=== PATIENT | female | born 1940 | race Caucasian/White ===

== ENCOUNTER → 2016-10-21 | Outpatient (CLI) | payer MEDICARE ==
[2015-10-16 08:57] VITALS: BP 186/99
[~2016-10-21] MED LIST: CARV25TA PO; DABI150C PO
--- NOTE | 2016-10-21 09:34 | CARD ---
APPROVED REPORT EXAM: Two-dimensional and M-mode echocardiogram with Doppler and color Doppler. Other Information Quality : Average Rhythm : Atrial Fibrillation INDICATION Atrial Fibrillation 2D DIMENSIONS RVDd2.9 (2.9-3.5cm)Left Atrium(2D)4.6 (1.6-4.0cm) IVSd1.0 (0.7-1.1cm)Aortic Root(2D)3.4 (2.0-3.7cm) LVDd3.8 (3.9-5.9cm)LVOT Diameter2.0 (1.8-2.4cm) PWd1.0 (0.7-1.1cm)LVDs2.7 (2.5-4.0cm) FS (%) 27.2 %SV32.6 ml LVEF(%)53.8 (>50%) Aortic Valve AoV Peak César.92.0cm/sAoV VTI20.4cm AO Peak GR.3.4mmHgLVOT Peak César.73.2cm/s LVOT VTI 15.43cmAO Mean GR.2mmHg KALYN (VMAX)2.83dw2FTK (VTI)2.33cm2 Mitral Valve MV E Sfokures711.7cm/sMV DECEL [id number] MV A Velocity1.3cm/sMV SYJ84hl E/A Xvdfe992.5MVA (PHT)6.32cm2 Tricuspid Valve TR P. Bzojzvgc198kz/sRAP EXLLXHSO4rcMd TR Peak Gr.90gpBeCKQG59lxCl LEFT VENTRICLE The left ventricle is normal size. There is normal left ventricular wall thickness. Left ventricle sy stolic function is normal. The Ejection Fraction is 50-55%. There is grossly normal LV segmental wall motion. Tissue Doppler imaging reveals moderate left ventricular diastolic dysfunction. RIGHT VENTRICLE The right ventricle is normal size. The right ventricular systolic function is normal. ATRIA The left atrium is mildly dilated. The right atrium size is normal. The interatrial septum is intact with no evidence for an atrial septal defect or patent foramen ovale as noted on 2-D or Doppler imagi ng. AORTIC VALVE The aortic valve is mildly calcified. The aortic valve is trileaflet. Doppler and Color Flow revealed no significant aortic regurgitation. There is no significant aortic valvular stenosis. MITRAL VALVE The mitral valve leaflets are calcified. There is no mitral valve stenosis. Doppler and Color Flow re vealed mild mitral regurgitation. TRICUSPID VALVE The tricuspid valve is normal in structure. Doppler and Color Flow revealed mild tricuspid regurgitat ion. The PA pressure was estimated at 40 mmHg. There is no tricuspid valve stenosis. PULMONIC VALVE The pulmonic valve is not well visualized. Doppler and Color Flow revealed trace pulmonic valvular re gurgitation. There is no pulmonic valvular stenosis. GREAT VESSELS The aortic root is normal in size. The ascending aorta is normal in size. The IVC is normal in size a nd collapses >50% with inspiration. PERICARDIAL EFFUSION There is no evidence of significant pericardial effusion. Critical Notification Critical Value: No <Conclusion> Left ventricle systolic function is normal. The Ejection Fraction is 50-55%. There is grossly normal LV segmental wall motion.
== END | disposition home or self-care (01) ==
LOC: ECHO 07:57
PROVIDERS: ATTEND Internal Medicine Cardiovascular Disease
DX: I48.91 Unspecified atrial fibrillation (principal)
CPT/HCPCS: 93306

== ENCOUNTER → 2017-03-24 | Outpatient (CLI) | payer MEDICARE ==
[2015-10-16 08:57] VITALS: BP 186/99
[2017-03-24 16:05] LABS: HEMATOCRIT 44.5 % (36.0-47.0); HEMOGLOBIN 14.9 g/dL (12.0-15.5)
[2017-03-24 16:10] LABS: ALBUMIN 3.2 g/dL (3.4-5.0); CALCIUM 9.1 mg/dL (8.5-10.1); GFR 53.6; PHOSPHORUS 3.5 mg/dL (2.6-4.7); POTASSIUM 3.6 mmol/L (3.5-5.1)
--- NOTE | 2017-03-24 17:15 | RAD ---
Bilateral renal ultrasound 03/24/2017 Comparison: None. Clinical indication: Acute renal failure. Right kidney measures 9.1 cm in length with mild cortical thinning. No right renal collecting system dilatation or abnormal perinephric fluid collection. Left kidney measures 10.3 cm in length with mild cortical thinning eared no evidence of left renal collecting system dilatation. Partially distended urinary bladder is unremarkable. Impression: 1. Both kidneys present with mild cortical thinning. 2. No hydronephrosis
[2017-03-27 06:08] LABS: ALBUM 3.3 g/dL (2.9-4.4); ALPHA 1 0.2 g/dL (0.0-0.4); ALPHA 2 0.7 g/dL (0.4-1.0); GAMMA 1.3 g/dL (0.4-1.8); PROTEIN TOTAL 6.6 g/dL (6.0-8.5)
[2017-03-27 07:12] LABS: IMMUNOGLOBULIN A 372 mg/dL (64-422); IMMUNOGLOBULIN G 1246 mg/dL (700-1600); IMMUNOGLOBULIN M 122 mg/dL (26-217)
== END | disposition home or self-care (01) ==
LOC: US 14:22
PROVIDERS: ATTEND Internal Medicine Nephrology
DX: I12.9 Hypertensive chronic kidney disease with stage 1 through stage 4 chronic kidney disease, or unspecified chronic kidney disease (principal); N18.3 Chronic kidney disease, stage 3 (moderate); N17.8 Other acute kidney failure; I70.1 Atherosclerosis of renal artery; E88.09 Other disorders of plasma-protein metabolism, not elsewhere classified; Z68.33 Body mass index [BMI] 33.0-33.9, adult; R60.0 Localized edema
CPT/HCPCS: 36415; 76770; 80069; 84165; 85014; 85018; 86334

== ENCOUNTER 2017-11-20 10:27 | Inpatient (IN) | payer MEDICARE ==
[~2017-11-20] VITALS: Ht 162.6 cm; Wt 84.1 kg
[2017-11-20] MEDS ORDERED: MECLIZINE 12.5 MG TABLET. PO PRN ×2 (10:45→16:00)
--- NOTE | 2017-11-20 10:50 | EKG ---
[address] [address] Test Date: 2017-11-20 Test Time: 10:38:56 Pat Name: LI HARRIS Department: Room: Gender: F Hod Carrier: : 1940 Requested By: MICHELA ZAZUETA Order Number: [id number] Reading MD: Dangelo Zabala MD Measurements Intervals [place] Rate: 79 P: ND: QRS: 50 QRSD: 80 T: 8 QT: 368 QTc: 423 Interpretive Statements ATRIAL FIBRILLATION WITH CONTROLLED VENTRICULAR RESPONSE NON-SPECIFIC ST/T CHANGES Electronically Signed On 11-20-2017 12:32:00 CDT by Dangelo Zabala MD
--- NOTE | 2017-11-20 11:07 | RAD ---
CT of the head without contrast, 11/20/2017: HISTORY: Dizziness There is mild cerebral atrophy. The ventricles are within normal limits in size. There is no shift of the midline structures. There is no evidence of acute intracranial hemorrhage or mass effect. There is calcific plaquing of the distal internal carotid and vertebral arteries. There is partial opacification of the left ethmoid sinus. No free fluid is seen in the visualized paranasal sinuses. The maxillary sinuses were not included on this study. IMPRESSION: 1. No acute intracranial abnormality is detected. 2. Partial opacification of the left ethmoid sinus. Portable chest, 11/20/2017: HISTORY: Dizziness The heart is at the upper limits of normal in size. There is calcific plaquing of the aorta. The pulmonary vascularity is normal. A probable small granuloma is present in the left apex. No pulmonary infiltrate is seen. There is no evidence of pleural fluid. IMPRESSION: 1. Borderline cardiomegaly and aortic atherosclerosis. 2. No acute cardiopulmonary abnormality is detected. Electronically signed by: Alan Lucas MD (11/20/2017 11:04 AM) [facility]
[2017-11-20 11:14] LABS: MAGNESIUM 2.1 mg/dL (1.8-2.4)
--- NOTE | 2017-11-20 11:23 | PHYS DOC ---
Past History Past Medical History: A-Fib, Hypertension Past Surgical History: No Surgical History Alcohol Use: None Drug Use: None Adult General Chief Complaint Chief Complaint: DIZZY/LIGHT HEADED HPI HPI Patient is a 77 year old female who presents with complaining of dizziness. Patient complaining of intermittent episodes of dizziness for the last 5 days that usually happen 2 or 3 times a day and not related to position or activity. Patient complaining of dizziness and nausea without headache, focal neuro deficit, fever and chills, chest pain, palpitation, recent URI, tinnitus and change of hearing. She states the episodes of dizziness usually last about 30 minutes. Patient had outpatient lab today and presented to emergency room because of increasing of dizziness. CBC and CMP did not show acute abnormality. Review of Systems Review of Systems Constitutional: Denies fever or chills [] Eyes: Denies change in visual acuity, redness, or eye pain [] HENT: Denies nasal congestion or sore throat [] Respiratory: Denies cough or shortness of breath [] Cardiovascular: No additional information not addressed in HPI [] GI: Denies abdominal pain, vomiting, bloody stools or diarrhea, reports nausea : Denies dysuria or hematuria [] Musculoskeletal: Denies back pain or joint pain [] Integument: Denies rash or skin lesions [] Neurologic: Denies headache, focal weakness or sensory changes reports dizziness Endocrine: Denies polyuria or polydipsia [] All other systems were reviewed and found to be within normal limits, except as documented in this note. Current Medications Current Medications Current Medications Medications (Trade) Dose Ordered Sig/Jeovany Start Time Stop Time Status Last Admin Dose Admin Meclizine HCl (Antivert) 25 mg PRN Q6HRS PRN 11/20/17 10:45 11/20/17 11:16 25 MG Ondansetron HCl (Zofran) 4 mg 1X ONCE 11/20/17 11:30 11/20/17 11:31 11/20/17 11:16 4 MG Allergies Allergies Allergies Coded Allergies Type Severity Reaction Last Updated Verified No Known Drug Allergies 11/20/17 No Physical Exam Physical Exam Constitutional: Well developed, well nourished, mild distress, non-toxic appearance. [] HENT: Normocephalic, atraumatic, bilateral external ears normal, oropharynx moist, no oral exudates, nose normal. [] Eyes: PERRLA, EOMI, conjunctiva normal, no discharge. [] Neck: Normal range of motion, no tenderness, supple, no stridor. [] Cardiovascular: Irregularly irregular rhythm, no murmur [] Lungs & Thorax: Bilateral breath sounds clear to auscultation [] Abdomen: Bowel sounds normal, soft, no tenderness, no masses, no pulsatile masses. [] Skin: Warm, dry, no erythema, no rash. [] Back: No tenderness, no CVA tenderness. [] Extremities: No tenderness, no cyanosis, no clubbing, ROM intact, bilateral lower extremity edema , more in right side that patient states it is a chronic problem. [] Neurologic: Alert and oriented X 3, normal motor function, normal sensory function, no focal deficits noted. [] Psychologic: Affect normal, judgement normal, mood normal. [] Current Patient Data Vital Signs Vital Signs Date Time Temp Pulse Resp B/P (MAP) Pulse Ox O2 Delivery O2 Flow Rate FiO2 11/20/17 10:35 97.0 88 18 99 Room Air Lab Results Laboratory Tests Test 11/20/17 08:44 Magnesium Level 2.1 mg/dL (1.8-2.4) Creatine Kinase 74 U/L (26-192) Creatine Kinase MB (Mass) 0.9 ng/mL (0.0-3.6) Creatine Kinase MB Relative Index 1.2 % (0-4) Troponin I Quantitative < 0.017 ng/mL (0-0.055) RC-Gde-O-Type Natriuretic Peptide 1983 pg/mL (0-449) H EKG EKG EKG interpreted by me. EKG at 1038 showed atrial flutter patient at rate of 79, poor R-wave progress in anteroseptal leads, no acute ST and T-wave abnormalities. Radiology/Procedures Radiology/Procedures [address] [address] IMAGING REPORT Signed PATIENT: LI HARRIS ACCOUNT: [id number] : 1940 LOCATION: ER AGE: 77 SEX: F EXAM STATUS: REG ER ORD. PHYSICIAN: MICHELA ZAZUETA MD REASON: dizziness PROCEDURE: CT HEAD WO CONTRAST CT of the head without contrast, 11/20/2017: HISTORY: Dizziness There is mild cerebral atrophy. The ventricles are within normal limits in size. There is no shift of the midline structures. There is no evidence of acute intracranial hemorrhage or mass effect. There is calcific plaquing of the distal internal carotid and vertebral arteries. There is partial opacification of the left ethmoid sinus. No free fluid is seen in the visualized paranasal sinuses. The maxillary sinuses were not included on this study. IMPRESSION: 1. No acute intracranial abnormality is detected. 2. Partial opacification of the left ethmoid sinus. Portable chest, 11/20/2017: HISTORY: Dizziness The heart is at the upper limits of normal in size. There is calcific plaquing of the aorta. The pulmonary vascularity is normal. A probable small granuloma is present in the left apex. No pulmonary infiltrate is seen. There is no evidence of pleural fluid. IMPRESSION: 1. Borderline cardiomegaly and aortic atherosclerosis. 2. No acute cardiopulmonary abnormality is detected. Electronically signed by: Alan Lucas MD (11/20/2017 11:04 AM) [facility] DICTATED AND SIGNED BY: ALAN LUCAS MD DATE: 11/20/17 1100 CC: MICHELA ZAZUETA MD; ARIADNA SANTANA ~ Course & Med Decision Making Course & Med Decision Making Pertinent Labs and Imaging studies reviewed. (See chart for details) Evaluation of patient in ER showed 77-year-old male patient with complaining of intermittent episodes of dizziness. Patient had history of CVA and coronary dizziness with positive ketones test. Patient had blood pressure of more than 200 at arrival to ER with negative orthostatic vitals. Patient treated with Zofran and meclizine and her dizziness improved. CT head and labs was unremarkable. Lactic acid was negative. UA showed UTI and patient treated with Cipro in ER. Patient blood pressure was 220/110 and treated with clonidine. Because of elevation of blood pressure and dizziness plan to admit patient for observation. Dr. Crane accepted admission at 1247. Patient treated with clonidine and her blood pressure decreased to 140s over 100. Dragon Disclaimer Dragon Disclaimer This electronic medical record was generated, in whole or in part, using a voice recognition dictation system. Departure Departure: Impression: Primary Impression: Hypertensive urgency Additional Impressions: Dizziness Atrial fibrillation UTI (urinary tract infection) Disposition: 09 ADMITTED INPATIENT (at 1247) Admitting Physician: Other (Dr Crane ) Condition: IMPROVED Referrals: ARIADNA SANTANA (PCP) Problem Qualifiers MICHELA ZAZUETA MD Nov 20, 2017 11:23
[2017-11-20] MEDS ORDERED: ONDANSETRON PF 4 MG/2 ML VIAL. IV ONE (11:30)
[2017-11-20 11:36] LABS: BILIRUBIN,URINE NEG (NEG); CLARITY,URINE CLOUDY; COLOR,URINE YELLOW; GLUCOSE,URINE NEG (NEG); UROBILINOGEN,URINE 0.2 mg/dL (0.2 mg/dL)
[2017-11-20 11:37] LABS: BACTERIA,URINE MANY /HPF (0-FEW); NITRITE,URINE POS (NEG); SQUAMOUS EPITHELIAL CELL,UR MANY /LPF
[2017-11-20] MEDS ORDERED: CIPROFLOXACIN HCL 500 MG TABLET PO ONE (12:30)
[2017-11-20] MEDS ORDERED: cloNIDine HCL 0.1 MG TABLET PO ONE (12:30)
[2017-11-20 14:55] VITALS: BP 158/87
[2017-11-20] MEDS ORDERED: LISI-334 PO (15:20)
[2017-11-20] MEDS ORDERED: RIVA20TA2 PO (15:20)
[2017-11-20] MEDS ORDERED: LABETALOL 20 MG/4 ML DISP.SYRIN. IVP PRN (16:00)
[2017-11-20] MEDS ORDERED: cefTRIAXone IV Push 1 GM VIAL. IVP SCH (17:00)
[2017-11-20] MEDS: CARVEDILOL 12.5 MG TABLET PO SCH (17:05)
[2017-11-20 18:16] VITALS: BP 146/82
[2017-11-20 21:13] VITALS: BP 142/74
[2017-11-20] MEDS: ENOXAPARIN ** NOTE DOSE ** SYRINGE SQ SCH (21:26)
[2017-11-20] MEDS: SMZ/TMP 800/160MG TABLET. PO SCH (21:26)
[2017-11-21 05:40] VITALS: BP 135/82
[2017-11-21 06:40] LABS: BASO % 0 % (0-3); EOS % 1 % (0-3); HEMATOCRIT 41.5 % (36.0-47.0); HEMOGLOBIN 13.9 g/dL (12.0-15.5); LYMPH # 1.2 x10^3/uL (1.0-4.8); LYMPH % 25 % (24-48); MEAN CORPUSCULAR HEMOGLOBIN 31 pg (25-35); MEAN CORPUSCULAR HGB CONC 34 g/dL (31-37); MEAN CORPUSCULAR VOLUME 91 fL (79-100); MONO # 0.6 x10^3/uL (0.0-1.1); MONO % 13 % (0-9); NEUT # 3.1 x10^3uL (1.8-7.7); NEUT % 61 % (31-73); PLATELET COUNT 170 x10^3/uL (140-400); RED BLOOD COUNT 4.55 x10^6/uL (3.50-5.40); RED CELL DISTRIBUTION WIDTH 14.3 % (11.5-14.5)
[2017-11-21 06:45] LABS: CALCIUM 8.5 mg/dL (8.5-10.1); CREATININE 1.2 mg/dL (0.6-1.0); GFR 43.4; POTASSIUM 3.6 mmol/L (3.5-5.1)
[2017-11-21] MEDS: LACTOBACILLUS RHAMNOSUS GG 1 CAPSULE. PO SCH ×2 (09:10→20:18)
[2017-11-21] MEDS: LISINOPRIL 20 MG TABLET PO SCH (09:10)
[2017-11-21] MEDS: SMZ/TMP 800/160MG TABLET. PO SCH ×2 (09:10→20:18)
[2017-11-21] MEDS: CARVEDILOL 12.5 MG TABLET PO SCH ×2 (09:11→18:17)
[2017-11-21] MEDS: ENOXAPARIN ** NOTE DOSE ** SYRINGE SQ SCH (09:15)
[2017-11-21 09:23] VITALS: BP 128/82
--- NOTE | 2017-11-21 13:43 | PDOC1 ---
History of Present Illness Reason for Visit: near syncope History of Present Illness 77-year-old female presented to the emergency department with reported complaints of dizziness. It was reported that the patient had intermittent episodes of dizziness 2-3 times a day for the past 5 days or so. No relation to head movement or other positions, blood pressure markedly elevated in the emergency department 221/112, she had an outpatient CBC and chemistry earlier in the day which were reported to me as normal. ED labs reveal negative cardiac enzymes, BNP 1983, and urinalysis with squamous epithelial contamination and products of infection. Chest x-ray and CT of the head without contrast revealed no acute findings. The patient was admitted for hypertensive urgency, UTI, and vertigo. In talking with the patient today she relays that she hasn't felt any actual dizziness. She says that for the past 5 days several times a day she's developed nausea, her arms feel rubbery, she starts to feel lightheaded "as if I 'll go down" feeling as if she is going to pass out. Symptoms last approximately 30 minutes when they do happen, they are not related to exertion position or other discernible cause and resolved spontaneously. She denies chest pain, headache, focal neurologic symptoms, and trouble breathing but does become diaphoretic. She has spot checked her blood pressures at home a several times this past week averaging 150s over 80s. She has not started any new medications recently and denies any other concomitant symptoms. Her blood pressures have been well controlled on her home meds since admission, she has had no recurrence of near syncope symptoms. Today's labs reveal B UN 9 creatinine 1.2 and TSH 5.060. Past medical history: Atrial fibrillation, hypertension, CVA Past Surgical History: Social History: , no alcohol/tobacco/illicit. Chief Complaint: DIZZY/LIGHT HEADED Allergies: Coded Allergies: No Known Drug Allergies (Unverified , 11/20/17) Past Medical History Cardiac: AFIB, HTN Review of Systems Review Of Systems Fourteen system , review of systems has been reviewed. See HPI for pertinent positives and negative responses, other vidal all other systems are negative, non pertinent or non contributory Constitutional: No: Fever, Chills, Weakness, Malaise Eyes: No: Blurry vision, Eye Pain, Photophobia ENT: No: Ear pain, Nose discharge, Nose congestion, Throat pain Respiratory: No: Cough, Shortness of breath, SOB with excertion, Wheezing Cardiovascular: yes: Edema, Lt Headedness; No: Chest Pain, Palpitations Gastrointestinal: YES: Nausea; No: Vomiting, Abdominal Pain, Diarrhea Musculoskeletal: YES: Swelling In: (right leg chronically since her stroke); No: Gait Disturbance, Muscle Pain SKIN: YES: Warm, Dry Neurological: No: Behavorial Changes, Headaches, Impaired Coord/balance, Memory Loss Medications Current Medications Meclizine HCl (Antivert) 25 mg PRN Q6HRS PRN PO DIZZINESS Last administered on 11/20/17at 11:16; Start 11/20/17 at 10:45; Stop 11/20/17 at 16:11; Status DC Ondansetron HCl (Zofran) 4 mg 1X ONCE IV Last administered on 11/20/17at 11:16 ; Start 11/20/17 at 11:30; Stop 11/20/17 at 11:31; Status DC Ciprofloxacin (Cipro) 500 mg 1X ONCE PO Last administered on 11/20/17at 12:06; Start 11/20/17 at 12:30; Stop 11/20/17 at 12:31; Status DC Clonidine HCl (Catapres) 0.2 mg 1X ONCE PO Last administered on 11/20/17at 12: 06; Start 11/20/17 at 12:30; Stop 11/20/17 at 12:31; Status DC Lisinopril (Prinivil) 20 mg DAILY PO Last administered on 11/21/17at 09:10; Start 11/21/17 at 09:00 Carvedilol (Coreg) 25 mg BIDWMEALS PO Last administered on 11/21/17at 09:11; Start 11/20/17 at 17:00 Enoxaparin Sodium (Lovenox 80mg Syringe) 80 mg Q12HR SQ Last administered on at 09:15; Start 11/20/17 at 21:00 Labetalol HCl (Normodyne) 20 mg PRN Q2HR PRN IVP HYPERTENSION, SEE COMMENTS; Start 11/20/17 at 16:00 Meclizine HCl (Antivert) 25 mg PRN Q6HRS PRN PO DIZZINESS; Start 11/20/17 at 16 :00 Ceftriaxone Sodium 1 gm/ Sodium Chloride 50 ml @ 100 mls/hr Q24H IV ; Start at 16:00; Stop 11/20/17 at 16:11; Status DC Ceftriaxone Sodium (Rocephin) 1 gm Q24H IVP Last administered on 11/20/17at 17: 05; Start 11/20/17 at 17:00; Stop 11/20/17 at 18:13; Status DC Trimethoprim/ Sulfamethoxazole (Bactrim Ds) 1 tab BID PO Last administered on at 09:10; Start 11/20/17 at 21:00 Lactobacillus Rhamnosus (Culturelle) 1 cap BID PO Last administered on at 09:10; Start 11/21/17 at 09:00 Active Scripts Active Reported Xarelto (Rivaroxaban) 20 Mg Tablet 20 Mg PO DAILY LAST DOSE GIVEN: DATE: TIME: NEXT DOSE DUE: DATE: TIME: Lisinopril 20 Mg Tablet 1 Tab PO DAILY LAST DOSE GIVEN: DATE: TIME: NEXT DOSE DUE: DATE: TIME: Coreg (Carvedilol) 25 Mg Tablet 1 Tab PO BIDWMEALS LAST DOSE GIVEN: DATE: TIME: NEXT DOSE DUE: DATE: TIME: Exam Vital Signs Vital Signs Date Time Temp Pulse Resp B/P (MAP) Pulse Ox O2 Delivery O2 Flow Rate FiO2 11/21/17 09:23 128/82 (97) 11/21/17 09:11 65 11/21/17 08:00 Room Air 11/21/17 05:40 98.3 18 95 General Appearance: Alert, Oriented X3, Cooperative, No acute distress HEENT: Atraumatic, PERRLA, EOMI, Mucous membr. moist/pink Respiratory: Clear to auscultation, Normal air movement Heart: Other (irregularly irregular no murmurs) Abdominal: Normal bowel sounds, Soft, No tenderness Extremities: No cyanosis, Normal pulses, Other (3+ nonpitting right leg, 1+ nonpitting left leg) Neuro: Normal speech, Strength at 5/5 X4 ext, Normal tone, Sensation intact, Cranial nerves 3-12 NL Psych/Mental Status: Mental status NL, Mood NL Assessment/Plan Assessment/Plan Near syncope: Echocardiogram pending, given the patient's history I feel cardiology consultation is indicated Hypothyroidism: Synthroid 50 g daily Hypertensive urgency: Resolved with home medications UTI: Rocephin 1 g IV daily, culture pending COURSE Allergies Coded Allergies Type Severity Reaction Last Updated Verified No Known Drug Allergies 11/20/17 No Laboratory Tests Test 11/21/17 06:00 White Blood Count 5.0 x10^3/uL (4.0-11.0) Red Blood Count 4.55 x10^6/uL (3.50-5.40) Hemoglobin 13.9 g/dL (12.0-15.5) Hematocrit 41.5 % (36.0-47.0) Mean Corpuscular Volume 91 fL (79-100) Mean Corpuscular Hemoglobin 31 pg (25-35) Mean Corpuscular Hemoglobin Concent 34 g/dL (31-37) Red Cell Distribution Width 14.3 % (11.5-14.5) Platelet Count 170 x10^3/uL (140-400) Neutrophils (%) (Auto) 61 % (31-73) Lymphocytes (%) (Auto) 25 % (24-48) Monocytes (%) (Auto) 13 % (0-9) Eosinophils (%) (Auto) 1 % (0-3) Basophils (%) (Auto) 0 % (0-3) Neutrophils # (Auto) 3.1 x10^3uL (1.8-7.7) Lymphocytes # (Auto) 1.2 x10^3/uL (1.0-4.8) Monocytes # (Auto) 0.6 x10^3/uL (0.0-1.1) Eosinophils # (Auto) 0.0 x10^3/uL (0.0-0.7) Basophils # (Auto) 0.0 x10^3/uL (0.0-0.2) Sodium Level 137 mmol/L (136-145) Potassium Level 3.6 mmol/L (3.5-5.1) Chloride Level 101 mmol/L (98-107) Carbon Dioxide Level 31 mmol/L (21-32) Anion Gap 5 (6-14) Blood Urea Nitrogen 9 mg/dL (7-20) Creatinine 1.2 mg/dL (0.6-1.0) Estimated GFR (Cockcroft-Gault) 43.4 Glucose Level 94 mg/dL (70-99) Calcium Level 8.5 mg/dL (8.5-10.1) Current Medications Medications (Trade) Dose Ordered Sig/Jeovany Route PRN Reason Start Time Stop Time Status Last Admin Dose Admin Lisinopril (Prinivil) 20 mg DAILY PO 11/21/17 09:00 11/21/17 09:10 Carvedilol (Coreg) 25 mg BIDWMEALS PO 11/20/17 17:00 11/21/17 09:11 Enoxaparin Sodium (Lovenox 80mg Syringe) 80 mg Q12HR SQ 11/20/17 21:00 11/21/17 09:15 Labetalol HCl (Normodyne) 20 mg PRN Q2HR PRN IVP HYPERTENSION, SEE COMMENTS 11/20/17 16:00 Meclizine HCl (Antivert) 25 mg PRN Q6HRS PRN PO DIZZINESS 11/20/17 16:00 Ceftriaxone Sodium 1 gm/ Sodium Chloride 50 ml @ 100 mls/hr Q24H IV 11/20/17 16:00 11/20/17 16:11 DC Ceftriaxone Sodium (Rocephin) 1 gm Q24H IVP 11/20/17 17:00 11/20/17 18:13 DC 11/20/17 17:05 Trimethoprim/ Sulfamethoxazole (Bactrim Ds) 1 tab BID PO 11/20/17 21:00 11/21/17 09:10 Lactobacillus Rhamnosus (Culturelle) 1 cap BID PO 11/21/17 09:00 11/21/17 09:10 I & O 11/21/17 00:00 Intake Total 240 ml Balance 240 ml Orders Procedure Category Date Status Time Admit Orders ADT 11/20/17 Transmitted Rehab Screening (Pt, REHAB 11/21/17 Complete Ot, St) 07:00 Lisinopril (Prinivil) PHA 11/21/17 In Process 09:00 Carvedilol (Coreg) PHA 11/20/17 In Process 17:00 Enoxaparin 80mg PHA 11/20/17 In Process Syringe (Lovenox 80mg 21:00 Labetalol (Normodyne) PHA 11/20/17 In Process 16:00 Meclizine (Antivert) PHA 11/20/17 In Process 16:00 Ceftriaxone Sodium PHA 11/20/17 Complete (Rocephin) 16:00 Cbc W Autodiff LAB 11/21/17 Complete 05:00 Basic Metabolic Panel LAB 11/21/17 Complete 05:00 Thyroid Stim Hormone LAB 11/20/17 Complete (Tsh) 15:54 Echocardiogram ECHO 11/20/17 Logged 15:54 Ceftriaxone Iv Push PHA 11/20/17 Complete (Rocephin) 17:00 Pt Eval And Treat PT 11/20/17 Complete 16:28 Ot Eval And Treat OT 11/20/17 Logged 16:28 Smz/Tmp 800/160mg PHA 11/20/17 In Process (Bactrim Ds) 21:00 Lactobacillus PHA 11/21/17 In Process Rhamnosus Gg 09:00 Consult Physician By CONS 11/21/17 Transmitted Name 13:13 T3,Free LAB 11/21/17 Transmitted 13:13 Rivaroxaban (Xarelto) PHA 11/21/17 Transmitted 17:00 Levothyroxine PHA 11/22/17 Transmitted (Synthroid) 07:00 Vital Signs Date Time Temp Pulse Resp B/P (MAP) Pulse Ox O2 Delivery O2 Flow Rate FiO2 11/21/17 09:23 128/82 (97) 11/21/17 09:11 65 11/21/17 08:00 Room Air 11/21/17 05:40 98.3 18 95 CHAR LUDWIG DO Nov 21, 2017 13:43
[2017-11-21 15:00] VITALS: BP 136/83
[2017-11-21] MEDS ORDERED: RIVAROXABAN 15 MG TABLET. PO SCH (17:00)
[2017-11-21 19:28] VITALS: BP 143/79
[2017-11-21 22:09] VITALS: BP 136/79
[2017-11-22 05:04] VITALS: BP 109/73
[2017-11-22] MEDS ORDERED: LEVOTHYROXINE 50 MCG TABLET PO SCH (06:00)
[2017-11-22] MEDS ORDERED: RIVAROXABAN 10 MG TABLET. PO SCH (09:00)
[2017-11-22] MEDS: SMZ/TMP 800/160MG TABLET. PO SCH (09:52)
[2017-11-22] MEDS: LACTOBACILLUS RHAMNOSUS GG 1 CAPSULE. PO SCH (09:52)
[2017-11-22] MEDS: CARVEDILOL 12.5 MG TABLET PO SCH (09:53)
[2017-11-22] MEDS: LISINOPRIL 20 MG TABLET PO SCH (09:53)
[2017-11-22 10:36] VITALS: BP 151/81
--- NOTE | 2017-11-22 14:00 | PDOC ---
SUBJECTIVE: I find the patient sitting up in bed visiting with family members were at the bedside. She continues to deny any near syncope episodes since admission. She denies any other new questions or complaints echocardiogram and cardiology consultation remain pending. Her vital signs have remained stable and urine culture still pending, continues to deny any urinary symptoms. OBJECTIVE: Problems: Problems Medical Problems: (1) Atrial fibrillation Status: Acute (2) Dizziness Status: Acute (3) Hypertensive urgency Status: Acute (4) UTI (urinary tract infection) Status: Acute Vital Signs: Vital Signs Date Time Temp Pulse Resp B/P (MAP) Pulse Ox O2 Delivery O2 Flow Rate FiO2 11/22/17 10:36 90 151/81 (104) 11/22/17 08:00 Room Air 11/22/17 05:04 98.0 18 98 I & O Intake and Output 11/22/17 07:00 Intake Total 1860 ml Output Total 300 ml Balance 1560 ml Intake Oral 1560 ml Blood Product IV Normal Saline Flush 300 ml Output Urine Total 300 ml # Voids 3 Labs: Laboratory Tests Test 11/21/17 06:00 White Blood Count 5.0 x10^3/uL (4.0-11.0) Red Blood Count 4.55 x10^6/uL (3.50-5.40) Hemoglobin 13.9 g/dL (12.0-15.5) Hematocrit 41.5 % (36.0-47.0) Mean Corpuscular Volume 91 fL (79-100) Mean Corpuscular Hemoglobin 31 pg (25-35) Mean Corpuscular Hemoglobin Concent 34 g/dL (31-37) Red Cell Distribution Width 14.3 % (11.5-14.5) Platelet Count 170 x10^3/uL (140-400) Neutrophils (%) (Auto) 61 % (31-73) Lymphocytes (%) (Auto) 25 % (24-48) Monocytes (%) (Auto) 13 % (0-9) Eosinophils (%) (Auto) 1 % (0-3) Basophils (%) (Auto) 0 % (0-3) Neutrophils # (Auto) 3.1 x10^3uL (1.8-7.7) Lymphocytes # (Auto) 1.2 x10^3/uL (1.0-4.8) Monocytes # (Auto) 0.6 x10^3/uL (0.0-1.1) Eosinophils # (Auto) 0.0 x10^3/uL (0.0-0.7) Basophils # (Auto) 0.0 x10^3/uL (0.0-0.2) Sodium Level 137 mmol/L (136-145) Potassium Level 3.6 mmol/L (3.5-5.1) Chloride Level 101 mmol/L (98-107) Carbon Dioxide Level 31 mmol/L (21-32) Anion Gap 5 (6-14) Blood Urea Nitrogen 9 mg/dL (7-20) Creatinine 1.2 mg/dL (0.6-1.0) Estimated GFR (Cockcroft-Gault) 43.4 Glucose Level 94 mg/dL (70-99) Calcium Level 8.5 mg/dL (8.5-10.1) Free Triiodothyronine (T3) pg/mL 1.84 pg/mL (2.18-3.98) Physical Exam: Gen.: Alert and pleasant no apparent distress HEENT: Normocephalic atraumatic, PERRLA EOMI oral mucosa pink and moist Neck: Supple nontender, no thyromegaly Pulmonary: Lungs are clear bilaterally no respiratory distress Cardio: Normal S1 and S2 no murmur Abdomen: Soft and nontender bowel sounds present Extremity: No clubbing cyanosis or edema Neuro: Alert and oriented 3, cranial nerves II through XII appear to be intact , no lateralizing neuro deficits ASSESSMENT: Near syncope: Echocardiogram and cardiology consultation pending Hypothyroidism: Continue Synthroid 50 g daily Urinary tract infection: Continue Bactrim DS await culture and sensitivity Hypertensive urgency: Resolved with home meds Patient really wants to go home today. She is agreeable to remain inpatient until evaluated by cardiology. If no further workup as an inpatient recommended per cardiology after evaluation will DC home. CHAR LUDWIG DO Nov 22, 2017 14:00
--- NOTE | 2017-11-22 15:06 | PDOC2 ---
CONSULT Date of Admission DATE: 11/22/17 TIME: 14:53 Reason for Consult: arrhythmias and dizziness Referring Physician: Dr. Crane Chief Complaint Dizziness Source: Chart review, Patient Problem List Problems Medical Problems: (1) Atrial fibrillation Status: Acute (2) Dizziness Status: Acute (3) Hypertensive urgency Status: Acute (4) UTI (urinary tract infection) Status: Acute History of Present Illness The patient is a 77 year old female who presented to the ER with episodes of increasing dizziness. She reported that these episodes had been increasing. Work up has included a CT head scan that showed no acute changes. CXR showed no acute infiltrates. She was found to have a UTI and has been treated with Ab. Her HTN has been controlled with oral meds. She has chronic atrial fib. treated with rate control and anticoagulation. Tele has shown no significant tachy or pamela episodes. She is comfortable in bed with no complaints. Cardiovascular: AFIB, HTN CENTRAL NERVOUS SYSTEM: CVA Renal/: UTI Past Surgical History: No pertinent history Family History: Hypertension Smoke: No Current Medications Current Medications Meclizine HCl (Antivert) 25 mg PRN Q6HRS PRN PO DIZZINESS Last administered on 11/20/17at 11:16; Start 11/20/17 at 10:45; Stop 11/20/17 at 16:11; Status DC Ondansetron HCl (Zofran) 4 mg 1X ONCE IV Last administered on 11/20/17at 11:16 ; Start 11/20/17 at 11:30; Stop 11/20/17 at 11:31; Status DC Ciprofloxacin (Cipro) 500 mg 1X ONCE PO Last administered on 11/20/17at 12:06; Start 11/20/17 at 12:30; Stop 11/20/17 at 12:31; Status DC Clonidine HCl (Catapres) 0.2 mg 1X ONCE PO Last administered on 11/20/17at 12: 06; Start 11/20/17 at 12:30; Stop 11/20/17 at 12:31; Status DC Lisinopril (Prinivil) 20 mg DAILY PO Last administered on 11/22/17at 09:53; Start 11/21/17 at 09:00 Carvedilol (Coreg) 25 mg BIDWMEALS PO Last administered on 11/22/17at 09:53; Start 11/20/17 at 17:00 Enoxaparin Sodium (Lovenox 80mg Syringe) 80 mg Q12HR SQ Last administered on at 09:15; Start 11/20/17 at 21:00; Stop 11/21/17 at 13:17; Status DC Labetalol HCl (Normodyne) 20 mg PRN Q2HR PRN IVP HYPERTENSION, SEE COMMENTS; Start 11/20/17 at 16:00 Meclizine HCl (Antivert) 25 mg PRN Q6HRS PRN PO DIZZINESS; Start 11/20/17 at 16 :00 Ceftriaxone Sodium 1 gm/ Sodium Chloride 50 ml @ 100 mls/hr Q24H IV ; Start at 16:00; Stop 11/20/17 at 16:11; Status DC Ceftriaxone Sodium (Rocephin) 1 gm Q24H IVP Last administered on 11/20/17at 17: 05; Start 11/20/17 at 17:00; Stop 11/20/17 at 18:13; Status DC Trimethoprim/ Sulfamethoxazole (Bactrim Ds) 1 tab BID PO Last administered on at 09:52; Start 11/20/17 at 21:00 Lactobacillus Rhamnosus (Culturelle) 1 cap BID PO Last administered on at 09:52; Start 11/21/17 at 09:00 Rivaroxaban (Xarelto) 20 mg BIDWMEALS PO ; Start 11/21/17 at 17:00; Stop at 17:00; Status DC Levothyroxine Sodium (Synthroid) 50 mcg DAILY06 PO Last administered on at 06:02; Start 11/22/17 at 06:00 Rivaroxaban (Xarelto) 20 mg DAILY PO Last administered on 11/22/17at 09:52; Start 11/22/17 at 09:00 Active Scripts Active Reported Xarelto (Rivaroxaban) 20 Mg Tablet 20 Mg PO DAILY LAST DOSE GIVEN: DATE: TIME: NEXT DOSE DUE: DATE: TIME: Lisinopril 20 Mg Tablet 1 Tab PO DAILY LAST DOSE GIVEN: DATE: TIME: NEXT DOSE DUE: DATE: TIME: Coreg (Carvedilol) 25 Mg Tablet 1 Tab PO BIDWMEALS LAST DOSE GIVEN: DATE: TIME: NEXT DOSE DUE: DATE: TIME: Allergies: Coded Allergies: No Known Drug Allergies (Unverified , 11/20/17) Cardiovascular: yes: Other (resolved dizziness) General: No acute distress HEENT: Atraumatic Lungs: Clear to auscultation Heart: Other (irreg. irreg with a rate of 78.) VITALS Vital Signs Date Time Temp Pulse Resp B/P (MAP) Pulse Ox O2 Delivery O2 Flow Rate FiO2 11/22/17 10:36 90 151/81 (104) 11/22/17 08:00 Room Air 11/22/17 05:04 98.0 18 98 Labs Laboratory Tests Test 11/21/17 06:00 White Blood Count 5.0 x10^3/uL (4.0-11.0) Red Blood Count 4.55 x10^6/uL (3.50-5.40) Hemoglobin 13.9 g/dL (12.0-15.5) Hematocrit 41.5 % (36.0-47.0) Mean Corpuscular Volume 91 fL (79-100) Mean Corpuscular Hemoglobin 31 pg (25-35) Mean Corpuscular Hemoglobin Concent 34 g/dL (31-37) Red Cell Distribution Width 14.3 % (11.5-14.5) Platelet Count 170 x10^3/uL (140-400) Neutrophils (%) (Auto) 61 % (31-73) Lymphocytes (%) (Auto) 25 % (24-48) Monocytes (%) (Auto) 13 % (0-9) Eosinophils (%) (Auto) 1 % (0-3) Basophils (%) (Auto) 0 % (0-3) Neutrophils # (Auto) 3.1 x10^3uL (1.8-7.7) Lymphocytes # (Auto) 1.2 x10^3/uL (1.0-4.8) Monocytes # (Auto) 0.6 x10^3/uL (0.0-1.1) Eosinophils # (Auto) 0.0 x10^3/uL (0.0-0.7) Basophils # (Auto) 0.0 x10^3/uL (0.0-0.2) Sodium Level 137 mmol/L (136-145) Potassium Level 3.6 mmol/L (3.5-5.1) Chloride Level 101 mmol/L (98-107) Carbon Dioxide Level 31 mmol/L (21-32) Anion Gap 5 (6-14) Blood Urea Nitrogen 9 mg/dL (7-20) Creatinine 1.2 mg/dL (0.6-1.0) Estimated GFR (Cockcroft-Gault) 43.4 Glucose Level 94 mg/dL (70-99) Calcium Level 8.5 mg/dL (8.5-10.1) Free Triiodothyronine (T3) pg/mL 1.84 pg/mL (2.18-3.98) Images CT head scan with no acute changes. CXR with no infiltrates. Assessment/Plan 1. Dizziness. Resolved. Chronic atrial fib. with good rate control. Co existing accel. HTN and a UTI on admission that could have contributed to her symptoms. Agree with rate control and anticoagulation. The patient may go home from a CV viewpoint. She will follow up with her regular genetic scientist in the next one to two weeks. 2. Accel. HTN. Controlled on present medications. 3. UTI. On Ab. 4. Hypothyroidism. On synthroid. 5. History of a CVA. Thank you for allowing us to participate in the care of your patient. LES WATTERS MD Nov 22, 2017 15:06
--- NOTE | 2017-11-22 16:16 | PDOC3 ---
Discharge Summary Visit Information Final Diagnosis Problems Medical Problems: (1) Atrial fibrillation Status: Acute (2) Dizziness Status: Acute (3) Hypertensive urgency Status: Acute (4) UTI (urinary tract infection) Status: Acute Brief Hospital Course Allergies Allergies Coded Allergies Type Severity Reaction Last Updated Verified No Known Drug Allergies 11/20/17 No Vital Signs Vital Signs Date Time Temp Pulse Resp B/P (MAP) Pulse Ox O2 Delivery O2 Flow Rate FiO2 11/22/17 10:36 90 151/81 (104) 11/22/17 08:00 Room Air 11/22/17 05:04 98.0 18 98 Lab Results Laboratory Tests Test 11/21/17 06:00 White Blood Count 5.0 x10^3/uL (4.0-11.0) Red Blood Count 4.55 x10^6/uL (3.50-5.40) Hemoglobin 13.9 g/dL (12.0-15.5) Hematocrit 41.5 % (36.0-47.0) Mean Corpuscular Volume 91 fL (79-100) Mean Corpuscular Hemoglobin 31 pg (25-35) Mean Corpuscular Hemoglobin Concent 34 g/dL (31-37) Red Cell Distribution Width 14.3 % (11.5-14.5) Platelet Count 170 x10^3/uL (140-400) Neutrophils (%) (Auto) 61 % (31-73) Lymphocytes (%) (Auto) 25 % (24-48) Monocytes (%) (Auto) 13 % (0-9) Eosinophils (%) (Auto) 1 % (0-3) Basophils (%) (Auto) 0 % (0-3) Neutrophils # (Auto) 3.1 x10^3uL (1.8-7.7) Lymphocytes # (Auto) 1.2 x10^3/uL (1.0-4.8) Monocytes # (Auto) 0.6 x10^3/uL (0.0-1.1) Eosinophils # (Auto) 0.0 x10^3/uL (0.0-0.7) Basophils # (Auto) 0.0 x10^3/uL (0.0-0.2) Sodium Level 137 mmol/L (136-145) Potassium Level 3.6 mmol/L (3.5-5.1) Chloride Level 101 mmol/L (98-107) Carbon Dioxide Level 31 mmol/L (21-32) Anion Gap 5 (6-14) Blood Urea Nitrogen 9 mg/dL (7-20) Creatinine 1.2 mg/dL (0.6-1.0) Estimated GFR (Cockcroft-Gault) 43.4 Glucose Level 94 mg/dL (70-99) Calcium Level 8.5 mg/dL (8.5-10.1) Free Triiodothyronine (T3) pg/mL 1.84 pg/mL (2.18-3.98) Brief Hospital Course Ms. Faust is a 77 old [sex] who presented with [ ] Discharge Information Dischare Medications Current Medications Meclizine HCl (Antivert) 25 mg PRN Q6HRS PRN PO DIZZINESS Last administered on 11/20/17at 11:16; Start 11/20/17 at 10:45; Stop 11/20/17 at 16:11; Status DC Ondansetron HCl (Zofran) 4 mg 1X ONCE IV Last administered on 11/20/17at 11:16 ; Start 11/20/17 at 11:30; Stop 11/20/17 at 11:31; Status DC Ciprofloxacin (Cipro) 500 mg 1X ONCE PO Last administered on 11/20/17at 12:06; Start 11/20/17 at 12:30; Stop 11/20/17 at 12:31; Status DC Clonidine HCl (Catapres) 0.2 mg 1X ONCE PO Last administered on 11/20/17at 12: 06; Start 11/20/17 at 12:30; Stop 11/20/17 at 12:31; Status DC Lisinopril (Prinivil) 20 mg DAILY PO Last administered on 11/22/17at 09:53; Start 11/21/17 at 09:00 Carvedilol (Coreg) 25 mg BIDWMEALS PO Last administered on 11/22/17at 09:53; Start 11/20/17 at 17:00 Enoxaparin Sodium (Lovenox 80mg Syringe) 80 mg Q12HR SQ Last administered on at 09:15; Start 11/20/17 at 21:00; Stop 11/21/17 at 13:17; Status DC Labetalol HCl (Normodyne) 20 mg PRN Q2HR PRN IVP HYPERTENSION, SEE COMMENTS; Start 11/20/17 at 16:00 Meclizine HCl (Antivert) 25 mg PRN Q6HRS PRN PO DIZZINESS; Start 11/20/17 at 16 :00 Ceftriaxone Sodium 1 gm/ Sodium Chloride 50 ml @ 100 mls/hr Q24H IV ; Start at 16:00; Stop 11/20/17 at 16:11; Status DC Ceftriaxone Sodium (Rocephin) 1 gm Q24H IVP Last administered on 11/20/17at 17: 05; Start 11/20/17 at 17:00; Stop 11/20/17 at 18:13; Status DC Trimethoprim/ Sulfamethoxazole (Bactrim Ds) 1 tab BID PO Last administered on at 09:52; Start 11/20/17 at 21:00 Lactobacillus Rhamnosus (Culturelle) 1 cap BID PO Last administered on at 09:52; Start 11/21/17 at 09:00 Rivaroxaban (Xarelto) 20 mg BIDWMEALS PO ; Start 11/21/17 at 17:00; Stop at 17:00; Status DC Levothyroxine Sodium (Synthroid) 50 mcg DAILY06 PO Last administered on at 06:02; Start 11/22/17 at 06:00 Rivaroxaban (Xarelto) 20 mg DAILY PO Last administered on 11/22/17at 09:52; Start 11/22/17 at 09:00 Active Scripts Active Reported Xarelto (Rivaroxaban) 20 Mg Tablet 20 Mg PO DAILY LAST DOSE GIVEN: DATE: TIME: NEXT DOSE DUE: DATE: TIME: Lisinopril 20 Mg Tablet 1 Tab PO DAILY LAST DOSE GIVEN: DATE: TIME: NEXT DOSE DUE: DATE: TIME: Coreg (Carvedilol) 25 Mg Tablet 1 Tab PO BIDWMEALS LAST DOSE GIVEN: DATE: TIME: NEXT DOSE DUE: DATE: TIME: CHAR LUDWIG DO Nov 22, 2017 16:15
[2017-11-22] MEDS ORDERED: LEVO50TA PO (16:19)
== END 2017-11-22 16:50 | disposition home or self-care (01) | DRG 690 ==
LOC: ER 10:27 → 1 SOUTH 14:11
PROVIDERS: ADMIT Neuromusculoskeletal Medicine & OMM; ATTEND Neuromusculoskeletal Medicine & OMM
DX: N39.0 Urinary tract infection, site not specified (principal); I16.0 Hypertensive urgency; E03.9 Hypothyroidism, unspecified; I10 Essential (primary) hypertension; I48.2 Chronic atrial fibrillation; Z82.49 Family history of ischemic heart disease and other diseases of the circulatory system; Z86.73 Personal history of transient ischemic attack (TIA), and cerebral infarction without residual deficits; Z79.01 Long term (current) use of anticoagulants
CPT/HCPCS: 36415; 70450; 71045; 80048; 80053; 80061; 81001; 82553; 83605; 83735; 83880; 84443; 84481; 84484; 85025; 85610; 85651; 87086; 93005; 96374; J0696; J1650; J2405; J8597; 99285-25

== ENCOUNTER → 2017-11-27 | Outpatient (CLI) | payer MEDICARE ==
[2017-11-22 10:36] VITALS: BP 151/81
[~2017-11-27] MED LIST changes: +LEVO50TA PO; +LISI-334 PO; +RIVA20TA2 PO
--- NOTE | 2017-11-27 13:50 | RAD ---
EXAM: Carotid Doppler sonogram. HISTORY: Syncope. TECHNIQUE: James scale and color Doppler sonographic evaluation of the neck with spectral waveform analysis was performed and static images are submitted for review. FINDINGS: There is moderate atherosclerotic plaque within the carotid bulbs and internal carotid arteries. The peak systolic velocity within the right common carotid artery is 55 cm/sec. The peak systolic velocity within the right internal carotid artery is 76 cm/sec and the end diastolic velocity within the right internal carotid artery is 21 cm/sec. The right ICA/CCA ratio is 2.0. The peak systolic velocity within the left common carotid artery is 48 cm/sec. The peak systolic velocity within the left internal carotid artery is 81 cm/sec and the end diastolic velocity within the left internal carotid artery is 18 cm/sec. The left ICA/CCA ratio is 1.69. There is normal antegrade flow within both vertebral arteries. IMPRESSION: 1. Borderline elevated right ICA to CCA ratio. There is no elevated peak systolic velocity to suggest greater than 50% stenosis within the right ICA. 2. No evidence of greater than 50% stenosis within the left ICA. 3. Moderate atherosclerotic plaque with the carotid bulbs and internal carotid arteries PQRS Compliance Statement - Stenosis calculations for CT, MR and conventional angiography are based upon measurement of the distal ICA diameter in accordance with the NASCET methodology. Stenosis calculations for carotid ultrasound studies are derived from validated velocity criteria which are known to correlate with the NASCET methodology. Electronically signed by: Ritika Sosa MD (11/27/2017 1:46 PM) [facility]
== END | disposition home or self-care (01) ==
LOC: US 12:11
PROVIDERS: ATTEND Physician Assistant Medical
DX: I72.0 Aneurysm of carotid artery (principal); I12.9 Hypertensive chronic kidney disease with stage 1 through stage 4 chronic kidney disease, or unspecified chronic kidney disease; N18.3 Chronic kidney disease, stage 3 (moderate); I48.2 Chronic atrial fibrillation; E03.9 Hypothyroidism, unspecified; Z79.01 Long term (current) use of anticoagulants; Z86.73 Personal history of transient ischemic attack (TIA), and cerebral infarction without residual deficits; Z82.49 Family history of ischemic heart disease and other diseases of the circulatory system
CPT/HCPCS: 93880

== ENCOUNTER → 2018-04-21 | Outpatient (CLI) | payer MEDICARE ==
[2018-04-21 11:06] LABS: HEMATOCRIT 44.3 % (36.0-47.0); HEMOGLOBIN 14.8 g/dL (12.0-15.5)
[2018-04-21 11:21] LABS: CALCIUM 9.1 mg/dL (8.5-10.1); CREATININE 0.9 mg/dL (0.6-1.0); GFR 60.4; PHOSPHORUS 3.8 mg/dL (2.6-4.7); POTASSIUM 4.4 mmol/L (3.5-5.1)
[2018-04-22 16:12] LABS: MICRO CREAT RATIO 21.2 mg/g creat (0.0-30.0); MICROALB RD UR 7.5 ug/mL (Not Estab.)
== END | disposition home or self-care (01) ==
LOC: LAB 10:15
PROVIDERS: ATTEND Nurse Practitioner Family
DX: I12.9 Hypertensive chronic kidney disease with stage 1 through stage 4 chronic kidney disease, or unspecified chronic kidney disease (principal); N18.3 Chronic kidney disease, stage 3 (moderate); I70.1 Atherosclerosis of renal artery; E88.09 Other disorders of plasma-protein metabolism, not elsewhere classified; R03.0 Elevated blood-pressure reading, without diagnosis of hypertension; Z68.32 Body mass index [BMI] 32.0-32.9, adult
CPT/HCPCS: 36415; 80069; 82043; 82570; 85014; 85018

== ENCOUNTER → 2018-12-28 | Outpatient (CLI) | payer MEDICARE ==
--- NOTE | 2018-12-28 14:48 | CARD ---
MR#: [id number] Date of Study: 12/28/2018 Ordering Physician: ELIZABETH ZABALA, Referring Physician: ELIZABETH ZABALA, Tech: Cassidy Kumar APPROVED REPORT EXAM: Two-dimensional and M-mode echocardiogram with Doppler and color Doppler. Other Information Quality : AverageHR: 88bpm Technically limited study due to body habitus. INDICATION Atrial Fibrillation RISK FACTORS Hypertension 2D DIMENSIONS Left Atrium(2D)4.8 (1.6-4.0cm)IVSd1.0 (0.7-1.1cm) Aortic Root(2D)3.3 (2.0-3.7cm)LVDd4.2 (3.9-5.9cm) LVOT Diameter1.9 (1.8-2.4cm)PWd1.0 (0.7-1.1cm) LVDs2.9 (2.5-4.0cm)FS (%) 31.5 % SV47.5 mlLVEF(%)59.7 (>50%) Aortic Valve AoV Peak César.105.5cm/sAoV VTI24.2cm AO Peak GR.4.5mmHgLVOT Peak César.81.5cm/s LVOT VTI 21.23cmAO Mean GR.2mmHg KALYN (VMAX)2.89rq2FFS (VTI)2.55cm2 Mitral Valve MV E Peak Gr.9mmHgMV E Mean Gr.3mmHg Pulmonary Valve PV Peak Hewulipa06.2cm/sPV Peak Grad.3mmHg Tricuspid Valve TR P. Ndrwbvwc664pg/sRAP [id number] TR Peak Gr.55jjJqKZCJ02ycRa Pulmonary Vein S1 Eblwbhfc39.3cm/sD2 Auqdyhje96.2cm/s LEFT VENTRICLE The left ventricle is normal size. There is mild concentric left ventricular hypertrophy. The left ve ntricular systolic function is normal and the ejection fraction is within normal range. The Ejection Fraction is 50%. Septal motion consistent with conduction abnormality. Tissue Doppler imaging reveals moderate left ventricular diastolic dysfunction. No left ventricle thrombus noted on this study. RIGHT VENTRICLE The right ventricle is normal size. There is normal right ventricular wall thickness. The right ventr icular systolic function is normal. ATRIA The left atrium is severely dilated. The right atrium is moderately dilated. The interatrial septum i s intact with no evidence for an atrial septal defect or patent foramen ovale as noted on 2-D or Dopp ler imaging. AORTIC VALVE The aortic valve is thickened but opens well. Doppler and Color Flow revealed no significant aortic r egurgitation. There is no significant aortic valvular stenosis. MITRAL VALVE The mitral valve is normal in structure and function. There is no evidence of mitral valve prolapse. There is no mitral valve stenosis. Doppler and Color-flow revealed mild mitral regurgitation. TRICUSPID VALVE The tricuspid valve is normal in structure and function. Doppler and Color Flow revealed moderate tri cuspid regurgitation with an estimated PAP of 47 mmHg. There is no tricuspid valve stenosis. PULMONIC VALVE The pulmonic valve is not well visualized. Doppler and Color Flow revealed mild pulmonic valvular reg urgitation. There is no pulmonic valvular stenosis. GREAT VESSELS The aortic root is normal in size. The IVC is normal in size and collapses >50% with inspiration. PERICARDIAL EFFUSION There is a trace pericardial effusion. Critical Notification Critical Value: No <Conclusion> The left ventricular systolic function is normal and the ejection fraction is within normal range. Th e Ejection Fraction is 50%. Septal motion consistent with conduction abnormality. The left atrium is severely dilated. Doppler and Color Flow revealed moderate tricuspid regurgitation with an estimated PAP of 47 mmHg. Signed by : Elizabeth Zabala, Electronically Approved : 12/28/2018 14:47:58
== END | disposition home or self-care (01) ==
LOC: ECHO 12:50
PROVIDERS: ATTEND Internal Medicine Cardiovascular Disease
DX: I08.8 Other rheumatic multiple valve diseases (principal); I11.9 Hypertensive heart disease without heart failure; I48.0 Paroxysmal atrial fibrillation
CPT/HCPCS: 93306

== ENCOUNTER 2019-01-18 09:19 | Emergency (ER) | payer MEDICARE ==
[~2019-01-18] VITALS: Ht 162.6 cm; Wt 86.7 kg
[2019-01-18] MEDS ORDERED: ONDANSETRON PF 4 MG/2 ML VIAL. IVP ONE (09:45)
[2019-01-18] MEDS ORDERED: IV NORMAL SALINE 1,000ML 1,000 ML IV ONE (09:45)
[2019-01-18 10:07] LABS: BASO % 0 % (0-3); EOS % 0 % (0-3); HEMATOCRIT 45.6 % (36.0-47.0); HEMOGLOBIN 15.5 g/dL (12.0-15.5); LYMPH # 0.3 x10^3/uL (1.0-4.8); LYMPH % 3 % (24-48); MEAN CORPUSCULAR HEMOGLOBIN 31 pg (25-35); MEAN CORPUSCULAR HGB CONC 34 g/dL (31-37); MEAN CORPUSCULAR VOLUME 91 fL (79-100); MONO # 0.2 x10^3/uL (0.0-1.1); MONO % 2 % (0-9); NEUT # 9.5 x10^3uL (1.8-7.7); NEUT % 95 % (31-73); PLATELET COUNT 177 x10^3/uL (140-400); RED BLOOD COUNT 5.03 x10^6/uL (3.50-5.40); RED CELL DISTRIBUTION WIDTH 14.5 % (11.5-14.5); WHITE BLOOD COUNT 10.1 x10^3/uL (4.0-11.0)
[2019-01-18 10:17] LABS: ALBUMIN 3.1 g/dL (3.4-5.0); ALBUMIN/GLOBULIN RATIO 0.8 (1.0-1.7); CALCIUM 8.9 mg/dL (8.5-10.1); GFR 53.5; POTASSIUM 3.9 mmol/L (3.5-5.1); TOTAL BILIRUBIN 1.4 mg/dL (0.2-1.0); TOTAL PROTEIN 7.2 g/dL (6.4-8.2)
[2019-01-18] MEDS ORDERED: IOHEXOL 300 MG/ML 75 ML VIAL. IV ONE ×2 (10:30)
--- NOTE | 2019-01-18 11:00 | PHYS DOC ---
Past History Past Medical History: A-Fib, Hypertension Past Surgical History: No Surgical History Alcohol Use: None Drug Use: None Adult General Chief Complaint Chief Complaint: ABDOMINAL PAIN HPI HPI 78-year-old female presents with right lower quadrant pain. Patient states that that started about 24 hours ago while she was sitting in a chair. It has been constant. It is a sharp pain of moderate intensity. She denies fever or chills. She's had no nausea or vomiting. Denies dysuria, increased urinary frequency, diarrhea, or constipation. No history of peripheral vascular disease or heart disease. She does have A. fib and history of a previous stroke. Review of Systems Review of Systems Constitutional: Denies fever or chills [] Eyes: Denies change in visual acuity, redness, or eye pain [] HENT: Denies nasal congestion or sore throat [] Respiratory: Denies cough or shortness of breath [] Cardiovascular: No additional information not addressed in HPI [] GI: Right lower quadrant abdominal pain. Denies nausea, vomiting, bloody stools or diarrhea [] : Denies dysuria or hematuria [] Musculoskeletal: Denies back pain or joint pain [] Integument: Denies rash or skin lesions [] Neurologic: Denies headache, focal weakness or sensory changes [] Endocrine: Denies polyuria or polydipsia [] All other systems were reviewed and found to be within normal limits, except as documented in this note. Current Medications Current Medications Current Medications Medications (Trade) Dose Ordered Sig/Jeovany Start Time Stop Time Status Last Admin Dose Admin Iohexol (Omnipaque 300 Mg/ml) 75 ml 1X ONCE 01/18/19 10:30 01/18/19 10:31 UNV Ondansetron HCl (Zofran) 4 mg 1X ONCE 01/18/19 09:45 01/18/19 09:46 DC 01/18/19 09:56 4 MG Sodium Chloride 1,000 ml @ 1,000 mls/hr 1X ONCE 01/18/19 09:45 01/18/19 10:44 DC 01/18/19 09:55 1,000 MLS/HR Allergies Allergies Allergies Coded Allergies Type Severity Reaction Last Updated Verified No Known Drug Allergies 01/18/19 No Physical Exam Physical Exam Constitutional: Well developed, obese, well nourished, no acute distress, non- toxic appearance. [] HENT: Normocephalic, atraumatic, bilateral external ears normal, oropharynx moist, no oral exudates, nose normal. [] Eyes: PERRLA, EOMI, conjunctiva normal, no discharge. [] Neck: Normal range of motion, no tenderness, supple, no stridor. [] Cardiovascular:Heart rate regular rhythm, no murmur [] Lungs & Thorax: Bilateral breath sounds clear to auscultation [] Abdomen: Bowel sounds normal, soft, moderate to severe right lower quadrant te nderness with guarding, no masses, no pulsatile masses. [] Skin: Warm, dry, no erythema, no rash. [] Back: No tenderness, no CVA tenderness. [] Extremities: No tenderness, no cyanosis, no clubbing, ROM intact, no edema. [] Neurologic: Alert and oriented X 3, normal motor function, normal sensory function, no focal deficits noted. [] Psychologic: Affect normal, judgement normal, mood normal. [] Current Patient Data Vital Signs Vital Signs Date Time Temp Pulse Resp B/P (MAP) Pulse Ox O2 Delivery O2 Flow Rate FiO2 01/18/19 09:32 98.9 104 18 98 Room Air Lab Results Laboratory Tests Test 01/18/19 09:52 White Blood Count 10.1 x10^3/uL (4.0-11.0) Red Blood Count 5.03 x10^6/uL (3.50-5.40) Hemoglobin 15.5 g/dL (12.0-15.5) Hematocrit 45.6 % (36.0-47.0) Mean Corpuscular Volume 91 fL (79-100) Mean Corpuscular Hemoglobin 31 pg (25-35) Mean Corpuscular Hemoglobin Concent 34 g/dL (31-37) Red Cell Distribution Width 14.5 % (11.5-14.5) Platelet Count 177 x10^3/uL (140-400) Neutrophils (%) (Auto) 95 % (31-73) H Lymphocytes (%) (Auto) 3 % (24-48) L Monocytes (%) (Auto) 2 % (0-9) Eosinophils (%) (Auto) 0 % (0-3) Basophils (%) (Auto) 0 % (0-3) Neutrophils # (Auto) 9.5 x10^3uL (1.8-7.7) H Lymphocytes # (Auto) 0.3 x10^3/uL (1.0-4.8) L Monocytes # (Auto) 0.2 x10^3/uL (0.0-1.1) Eosinophils # (Auto) 0.0 x10^3/uL (0.0-0.7) Basophils # (Auto) 0.0 x10^3/uL (0.0-0.2) Sodium Level 130 mmol/L (136-145) L Potassium Level 3.9 mmol/L (3.5-5.1) Chloride Level 94 mmol/L (98-107) L Carbon Dioxide Level 27 mmol/L (21-32) Anion Gap 9 (6-14) Blood Urea Nitrogen 9 mg/dL (7-20) Creatinine 1.0 mg/dL (0.6-1.0) Estimated GFR (Cockcroft-Gault) 53.5 BUN/Creatinine Ratio 9 (6-20) Glucose Level 124 mg/dL (70-99) H Calcium Level 8.9 mg/dL (8.5-10.1) Total Bilirubin 1.4 mg/dL (0.2-1.0) H Aspartate Amino Transferase (AST) 21 U/L (15-37) Alanine Aminotransferase (ALT) 10 U/L (14-59) L Alkaline Phosphatase 72 U/L (46-116) Total Protein 7.2 g/dL (6.4-8.2) Albumin 3.1 g/dL (3.4-5.0) L Albumin/Globulin Ratio 0.8 (1.0-1.7) L EKG EKG Irregular rhythm, rate 106, normal axis, no definitive P waves, likely A. fib, no ST elevations or depressions.[] Radiology/Procedures Radiology/Procedures [] Impressions: CT ABD PELV W/ IV CONTRST ONLY Indication: Abdomen pain. No prior abdominal surgery. Exposure: One or more of the following individualized dose reduction techniques were utilized for this examination: 1. Automated exposure control 2. Adjustment of the mA and/or kV according to patient size 3. Use of iterative reconstruction technique. Technique: Intravenous contrast was given. No oral contrast per request. Comparison: None FINDINGS: Mild atelectasis in lung bases. Heart size mildly enlarged. Small pericardial effusion. Small pleural effusions. Coronary artery calcifications. Right lobe of the liver is elongated. No definite focal hepatic lesion. Spleen is not enlarged. Pancreas appears unremarkable. No evidence of adrenal mass. Kidneys demonstrate symmetric enhancement. No evidence of hydronephrosis. 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 Distally, the left ureters are difficult to visualize separate. Heterogeneous density within the gallbladder likely due to gallstones. There could also be some gallbladder sludge. Mild gallbladder wall thickening and adjacent stranding raising the question of cholecystitis. Mild intrahepatic biliary ductal dilatation. The aorta is calcified. No evidence of aneurysm. Small hiatal hernia. Mild distention of small bowel loops, greater proximally, with fluid. There is an apparent point of transition within the distal aspect of the ileum. Colonic diverticulosis. The colon is decompressed. Apparent wall thickening of colon could be due to decompression versus mild submucosal edema. Dilated tubular structure in the right lower quadrant most likely represents an abnormal distended appendix with thick shaw measuring overall diameter of 15 mm. There are several densities within this structure likely appendicoliths. Conceivably this could represent an inflamed loop of terminal ileum as well. Fatty stranding around the structure in the right lower quadrant, and to lesser extent elsewhere in the peritoneal and retroperitoneal fat. Mild perihepatic ascites. Mild pelvic ascites. The uterus demonstrates some heterogeneous density and calcifications, most likely fibroids. The urinary bladder demonstrates no significant wall thickening. There is a focal protuberant pouch at the left urinary bladder could represent a diverticulum or a ureterocele. Degenerative changes of the spine. Mild anterior subluxation of L4 and L5. Mild endplate compression deformity at L5, most likely chronic unless there are acute symptoms here. IMPRESSION: 1. Inflammatory changes in the right lower quadrant with a distended ill-defined tubular structure most likely abnormal appendix due to acute appendicitis. Less likely, this could represent an abnormal loop of terminal ileum from nonspecific terminal ileitis. 2. Colonic diverticulosis. Mild wall thickening of segments of colon is likely just due to nondistention, as opposed to mild submucosal edema or colitis. 3. Cholelithiasis. Mild gallbladder wall thickening and adjacent inflammatory type changes suggesting cholecystitis. 4. Mild free pelvic and right perihepatic ascites. Nonspecific, inflammatory or infectious peritonitis is not excludable. 5. Small pericardial effusion and small pleural effusions. Mild atelectasis in lung bases. 6. 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 Note that the distal ureters are difficult to visualize separate however. There is a focal outpouching of the left urinary bladder could represent a diverticulum or ureterocele. No evidence of hydronephrosis. 7. Fluid distention of small bowel loops, compatible with ileus or enteritis. Due to an apparent point of transition at the distal small bowel, obstruction is not excludable. Electronically signed by: Hipolito Joya MD (01/18/2019 11:18 AM) [facility] DICTATED AND SIGNED BY: HIPOLITO JOYA MD DATE: 01/18/19 1112 CC: HECTOR TOVAR DO; ARIADNA SANTANA ~ Course & Med Decision Making Course & Med Decision Making Pertinent Labs and Imaging studies reviewed. (See chart for details) The patient's CT of the abdomen and felt was systems remarkable for several things. The most significant are likely acute appendicitis and cholecystitis. She official read for more details. I will discuss the patient with general surgery. I spoke with Dr. Browning through his nurse. He is in surgery. He would like patient transferred to [facility] to the hospitalist service. I have ordered Zosyn and Flagyl for the patient in addition to her blood cultures and lactic acid. After I discussed the patient with Dr. Browning, the patient and her family have requested that she go to [facility]. I have paged the hospitalist. It is the same surgery group. I spoke with the hospitalist, Dr. Gonzalez and she has the patient for transfer and admission. She will go by ambulance. Her lactic acid is 1.2. I spoke with Dr. Dill, general surgery at [facility] and he has accepted the patient to his service. 38 minutes of critical care time was spent on this patient exclusive of billable procedures. [] Dragon Disclaimer Dragon Disclaimer This electronic medical record was generated, in whole or in part, using a voice recognition dictation system. Departure Departure: Impression: Primary Impression: Cholecystitis Additional Impression: Appendicitis Disposition: XFER SHT-TRM HOSP Condition: STABLE Referrals: ARIADNA SANTANA (PCP) Problem Qualifiers Additional Impression: Appendicitis Appendicitis type: acute appendicitis Acute appendicitis type: with localized peritonitis Appendicitis gangrene presence: without gangrene Appendicitis perforation presence: without perforation Appendicitis abscess presence: without abscess Qualified Codes: K35.30 - Acute appendicitis with localized peritonitis, without perforation or gangrene HECTOR TOVAR DO Jan 18, 2019 11:00
--- NOTE | 2019-01-18 11:21 | RAD ---
CT ABD PELV W/ IV CONTRST ONLY Indication: Abdomen pain. No prior abdominal surgery. Exposure: One or more of the following individualized dose reduction techniques were utilized for this examination: 1. Automated exposure control 2. Adjustment of the mA and/or kV according to patient size 3. Use of iterative reconstruction technique. Technique: Intravenous contrast was given. No oral contrast per request. Comparison: None FINDINGS: Mild atelectasis in lung bases. Heart size mildly enlarged. Small pericardial effusion. Small pleural effusions. Coronary artery calcifications. Right lobe of the liver is elongated. No definite focal hepatic lesion. Spleen is not enlarged. Pancreas appears unremarkable. No evidence of adrenal mass. Kidneys demonstrate symmetric enhancement. No evidence of hydronephrosis. 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 Distally, the left ureters are difficult to visualize separate. Heterogeneous density within the gallbladder likely due to gallstones. There could also be some gallbladder sludge. Mild gallbladder wall thickening and adjacent stranding raising the question of cholecystitis. Mild intrahepatic biliary ductal dilatation. The aorta is calcified. No evidence of aneurysm. Small hiatal hernia. Mild distention of small bowel loops, greater proximally, with fluid. There is an apparent point of transition within the distal aspect of the ileum. Colonic diverticulosis. The colon is decompressed. Apparent wall thickening of colon could be due to decompression versus mild submucosal edema. Dilated tubular structure in the right lower quadrant most likely represents an abnormal distended appendix with thick shaw measuring overall diameter of 15 mm. There are several densities within this structure likely appendicoliths. Conceivably this could represent an inflamed loop of terminal ileum as well. Fatty stranding around the structure in the right lower quadrant, and to lesser extent elsewhere in the peritoneal and retroperitoneal fat. Mild perihepatic ascites. Mild pelvic ascites. The uterus demonstrates some heterogeneous density and calcifications, most likely fibroids. The urinary bladder demonstrates no significant wall thickening. There is a focal protuberant pouch at the left urinary bladder could represent a diverticulum or a ureterocele. Degenerative changes of the spine. Mild anterior subluxation of L4 and L5. Mild endplate compression deformity at L5, most likely chronic unless there are acute symptoms here. IMPRESSION: 1. Inflammatory changes in the right lower quadrant with a distended ill-defined tubular structure most likely abnormal appendix due to acute appendicitis. Less likely, this could represent an abnormal loop of terminal ileum from nonspecific terminal ileitis. 2. Colonic diverticulosis. Mild wall thickening of segments of colon is likely just due to nondistention, as opposed to mild submucosal edema or colitis. 3. Cholelithiasis. Mild gallbladder wall thickening and adjacent inflammatory type changes suggesting cholecystitis. 4. Mild free pelvic and right perihepatic ascites. Nonspecific, inflammatory or infectious peritonitis is not excludable. 5. Small pericardial effusion and small pleural effusions. Mild atelectasis in lung bases. 6. 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 Note that the distal ureters are difficult to visualize separate however. There is a focal outpouching of the left urinary bladder could represent a diverticulum or ureterocele. No evidence of hydronephrosis. 7. Fluid distention of small bowel loops, compatible with ileus or enteritis. Due to an apparent point of transition at the distal small bowel, obstruction is not excludable. Electronically signed by: Hipolito Joya MD (01/18/2019 11:18 AM) [facility]
[2019-01-18] MEDS ORDERED: IV NORMAL SALINE 50ML 50 ML ONE (11:58)
[2019-01-18] MEDS ORDERED: PIPERACILLIN/TAZOBACTAM 3.375 GM VIAL IV ONE (11:58)
[2019-01-18] MEDS ORDERED: PROCHLORPERAZINE 10 MG/2 ML VIAL. IV ONE (12:00)
[2019-01-18] MEDS ORDERED: MORPHINE SULFATE 2 MG/ML DISP.SYRIN. IV ONE ×2 (12:00→16:45)
[2019-01-18] MEDS ORDERED: PIPERACILLIN/TAZOBACTAM 3.375 GM in IV NORMAL SALINE 50ML 50 ML IV ONE (12:00)
[2019-01-18 12:12] LABS: BILIRUBIN,URINE NEG (NEG); CLARITY,URINE CLOUDY; COLOR,URINE YELLOW; GLUCOSE,URINE NEG (NEG)
[2019-01-18 12:13] LABS: BACTERIA,URINE MANY /HPF (0-FEW); NITRITE,URINE POS (NEG); RBC,URINE RARE /HPF (0-2); SQUAMOUS EPITHELIAL CELL,UR MOD /LPF; UROBILINOGEN,URINE 1 mg/dL (0.2 mg/dL)
--- NOTE | 2019-01-18 12:24 | RAD ---
CHEST AP ONLY History: Presurgical Comparison: November 20, 2017 Findings: Single view of the chest is submitted. Pericardial cardiac silhouette is somewhat prominent although unchanged. There is atherosclerotic calcification near aortic arch. There is no lobar consolidation, pleural fluid, pneumothorax. Impression: 1. No acute radiographic abnormality is identified. Pericardial cardiac silhouette is again somewhat enlarged. Electronically signed by: Fabrizio Land MD (01/18/2019 12:21 PM) [facility]
--- NOTE | 2019-01-18 16:41 | EKG ---
[address] [address] Test Date: 2019-01-18 Test Time: 12:00:29 Pat Name: LI HARRIS Department: Room: Gender: F Project Structural Engineer: GORGE : 1940 Requested By: HECTOR TOVAR Order Number: [id number] Reading MD: Measurements Intervals [place] Rate: 106 P: DE: QRS: 78 QRSD: 84 T: 28 QT: 330 QTc: 440 Interpretive Statements IRREGULAR RHYTHM, NO P-WAVE FOUND QRS(T) CONTOUR ABNORMALITY CONSIDER INFERIOR MYOCARDIAL DAMAGE POSSIBLY ABNORMAL ECG RI6.01 No previous ECG available for comparison
[2019-01-18] MEDS ORDERED: MORPHINE SULFATE 2 MG/ML DISP.SYRIN. ONE (16:44)
[2019-01-18 16:48] VITALS: BP 147/92
== END 2019-01-18 16:50 | disposition short-term general hospital (02) ==
LOC: ER 09:19
DX: K81.9 Cholecystitis, unspecified (principal); K35.30 Acute appendicitis with localized peritonitis, without perforation or gangrene; I48.91 Unspecified atrial fibrillation; I10 Essential (primary) hypertension
CPT/HCPCS: 36415; 71045; 74177; 80053; 81001; 83605; 84484; 85025; 87040; 87086; 93005; 96365; 96367; 96375; 96376; 99291; J0780; J2270; J2405; J2543; J3490; Q9967; 96366; J7030

== ENCOUNTER → 2019-03-22 | Outpatient (CLI) | payer MEDICARE ==
--- NOTE | 2019-03-22 15:47 | RAD ---
Examination: 2 views of the right hip with frontal view the pelvis, 2 views of the right knee, 5 views of the lumbar spine HISTORY: Leg weakness, pain, low back pain COMPARISON: None available. FINDINGS: 5 lumbar vertebrae are assumed. Mild compression changes lowest lumbar vertebra probably L5 similar to prior CT from January.. There is mild 3 mm anterolisthesis of L4 on L5 and L5 on S1. Moderate facet degenerative degenerative changes. The bilateral femoral heads within the acetabula. Mild joint space loss bilateral hip joints. Moderate joint space loss medial, lateral compartment femoral compartments. There is no acute fracture identified IMPRESSION: 1. Moderate degenerative changes lumbar spine as described above. 2. Moderate degenerative changes bilateral hip joints and the right knee. Electronically signed by: Barrie Marquez MD (03/22/2019 3:44 PM) [id number]
== END | disposition home or self-care (01) ==
LOC: PMG 10:16
PROVIDERS: ATTEND Physician Assistant Medical
DX: M47.817 Spondylosis without myelopathy or radiculopathy, lumbosacral region (principal); M16.0 Bilateral primary osteoarthritis of hip; M17.11 Unilateral primary osteoarthritis, right knee
CPT/HCPCS: 72110; 73502; 73560

== ENCOUNTER → 2019-11-01 | Outpatient (CLI) | payer MEDICARE ==
--- NOTE | 2019-11-01 10:39 | CARD ---
MR#: [id number] Date of Study: 11/01/2019 Ordering Physician: ELIZABETH MONTANA, Referring Physician: ELIZABETH MONTANA, Tech: Cassidy Kumar APPROVED REPORT EXAM: Two-dimensional and M-mode echocardiogram with Doppler and color Doppler. Other Information Quality : AverageHR: 97bpm INDICATION Atrial Fibrillation RISK FACTORS Hypertension 2D DIMENSIONS Left Atrium(2D)4.5 (1.6-4.0cm)IVSd1.0 (0.7-1.1cm) Aortic Root(2D)3.5 (2.0-3.7cm)LVDd4.6 (3.9-5.9cm) LVOT Diameter1.9 (1.8-2.4cm)PWd1.1 (0.7-1.1cm) LVDs3.1 (2.5-4.0cm)FS (%) 33.5 % SV61.3 mlLVEF(%)62.3 (>50%) Aortic Valve AoV Peak César.92.3cm/sAoV VTI19.9cm AO Peak GR.3.4mmHgLVOT Peak César.57.8cm/s LVOT VTI 14.89cmAO Mean GR.2mmHg KALYN (VMAX)1.57zj0PCZ (VTI)2.11cm2 Mitral Valve MV E Cjggiyly732.4cm/sMV E Peak Gr.6mmHg MV DECEL [id number] A Qkytbmnr09.6cm/s MV E Mean Gr.2mmHgE/A Ratio3.2 Pulmonary Valve PV Peak Smkbypio85.8cm/sPV Peak Grad.2mmHg Tricuspid Valve TR P. Wrcyziwp108zw/sRAP [id number] TR Peak Gr.55axIpDQIG56gqGb Pulmonary Vein S1 Eqhryxos46.1cm/sD2 Xaxkkxep74.8cm/s LEFT VENTRICLE The left ventricle is normal size. There is borderline to mild concentric left ventricular hypertroph y. The left ventricular systolic function is normal. The Ejection Fraction is 55%. There is normal LV segmental wall motion. Tissue Doppler imaging reveals moderate left ventricular diastolic dysfunctio n. RIGHT VENTRICLE The right ventricle is normal size. There is normal right ventricular wall thickness. The right ventr icular systolic function is normal. ATRIA The left atrium is moderately dilated. The right atrium size is normal. The interatrial septum is int act with no evidence for an atrial septal defect or patent foramen ovale as noted on 2-D or Doppler i maging. AORTIC VALVE The aortic valve is normal in structure and function. Doppler and Color Flow revealed no significant aortic regurgitation. There is no significant aortic valvular stenosis. Calculated aortic valve area is 2.4 cm2 with maximum pressure gradient of 4 mmHg and mean pressure gradient of 2 mmHg. MITRAL VALVE The mitral valve is normal in structure and function. There is no evidence of mitral valve prolapse. There is no mitral valve stenosis. Doppler and Color-flow revealed mild mitral regurgitation. TRICUSPID VALVE The tricuspid valve is normal in structure and function. Doppler and Color Flow revealed mild tricusp id regurgitation with an estimated PAP of 33 mmHg. There is no tricuspid valve stenosis. PULMONIC VALVE The pulmonary valve is normal in structure and function. Doppler and Color Flow revealed trace pulmon ic valvular regurgitation. GREAT VESSELS The aortic root is normal in size. The ascending aorta is borderline dilated. The IVC is normal in si ze and collapses >50% with inspiration. PERICARDIAL EFFUSION There is no evidence of significant pericardial effusion. Critical Notification Critical Value: No <Conclusion> The left ventricular systolic function is normal. The Ejection Fraction is 55%. There is normal LV segmental wall motion. Tissue Doppler imaging reveals moderate left ventricular diastolic dysfunction. The left atrium is moderately dilated. Mild mitral regurgitation. Mild tricuspid regurgitation with an estimated PAP of 33 mmHg. There is no evidence of significant pericardial effusion. Signed by : Daryl Hall, Electronically Approved : 11/01/2019 10:39:07
== END | disposition home or self-care (01) ==
LOC: ECHO 07:45
PROVIDERS: ATTEND Internal Medicine Cardiovascular Disease
DX: I08.1 Rheumatic disorders of both mitral and tricuspid valves (principal); I11.9 Hypertensive heart disease without heart failure; I48.91 Unspecified atrial fibrillation
CPT/HCPCS: 93306